=== PATIENT | female | born 1955 ===

== ENCOUNTER → 2018-01-14 15:26 | Outpatient (CLI) | payer OTHER, SELFPAY ==
--- NOTE | 2018-01-15 12:18 | PM.PFT.1 ---
Pulmonary Function Test Referral & Results Date Patient Seen: 01/14/18 Requesting provider: Kristen Larios Indication: Cough Results: This is a methacholine challenge Pre test spirometry shows an FVC of 2.10 L which is 60% of predicted and an FEV1 of 1.67 L which is 70% of predicted. The FEV1/FVC ratio was 80 which is 102% of predicted. There is a 30% drop in FEV1 with maximum methacholine administration. The number obtained was 1.17 L. Following bronchodilator administration patient's numbers returned to baseline Interpretation: I would consider this to be a positive methacholine challenge showing significant decline in FEV1 and FVC with administration of methacholine. There appeared to be complete resolution with administration of albuterol, Xopenex, and Atrovent all of which were required to get patient back to baseline.
== END ==
PROVIDERS: PCP Nurse Practitioner; Visit Provider Internal Medicine
DX: R05 Cough (principal)
CPT/HCPCS: 94070; 95070